=== PATIENT | male | born 2000 | race Caucasian/White ===

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

== ENCOUNTER 2021-06-25 14:53 | Emergency (ER) | payer SELFPAY ==
[~2021-06-25] VITALS: Ht 172.7 cm; Wt 70.0 kg
[2021-06-25 16:20] LABS: ALBUMIN 4.5 g/dL (3.2-5.0); ALKALINE PHOSPHATASE 77 u/l (38-126); ANION GAP 16 (6-22 (CALC)); BILIRUBIN, TOTAL 0.5 mg/dL (0.0-1.4); BUN 15 mg/dL (9-20); BUN/CREATININE RATIO 14 (12-20 (CALC)); CARBON DIOXIDE 25 mmol/l (22-30); CHLORIDE 96 mmol/l (95-108); CREATININE 1.1 mg/dL (0.7-1.3); GFR > 60 ML/MIN (>=60 (CALC)); GFR FOR AFR.AMER. > 60 ML/MIN (>=60 (CALC)); HEMATOCRIT 42.2 % (39.0-50.0); HEMOGLOBIN 14.7 g/dl (14.0-18.0); IMMATURE GRANULOCYTES 0.4 % (0.0-5.0); MEAN CELL VOLUME 80.1 fL CALC (80.0-100.0); MEAN CORPUSCULAR HGB 27.9 pG CALC (26.0-32.0); MEAN CORPUSCULAR HGB CONC 34.8 g/dL CAL (32.0-36.0); NEUT# 1.91 thou/uL (1.82-7.42); POTASSIUM 3.6 mmol/l (3.5-5.1); RED BLOOD COUNT 5.27 mill/uL (4.70-6.10); RED CELL DISTRI WIDTH 11.6 % (11.5-15.5); SGOT/AST 41 u/l (17-59); TOTAL PROTEIN 7.3 g/dL (6.3-8.2)
[2021-06-25 16:29] LABS: SODIUM 133 mmol/l (137-146)
[2021-06-25 16:52] LABS: URINE BLOOD DIPSTICK NEGATIVE (NEGATIVE); URINE COLOR YELLOW; URINE GLUCOSE - DIPSTICK NEGATIVE (NEGATIVE); URINE KETONE 40 mg/dL (NEGATIVE); URINE LEUK ESTERASE NEGATIVE (NEGATIVE); URINE PROTEIN - DIPSTICK TRACE mg/dL (NEG-TRACE); URINE SPECIFIC GRAVITY >=1.030; URINE UROBILINOGEN - DIPSTICK 0.2 E.U./dL (0.2)
[2021-06-25 17:02] LABS: URINE BILIRUBIN - DIPSTICK SMALL (NEGATIVE); URINE NITRITE - DIPSTICK NEGATIVE (Negative)
[2021-06-25] MEDS ORDERED: TORADOL PO (17:12)
[2021-06-25] MEDS ORDERED: ZOFRAN4 MG/TAB PO (17:12)
[2021-06-25 17:18] VITALS: BP 125/76
== END 2021-06-25 17:26 | disposition home or self-care (01) | DRG 179 ==
LOC: ED 14:53
PROVIDERS: Emergency Medicine
DX: U07.1 COVID-19 (principal)

== ENCOUNTER 2022-06-17 10:15 | Emergency (ER) | payer SELFPAY ==
[~2022-06-17] VITALS: Ht 170.2 cm; Wt 81.8 kg
[~2022-06-17 10:15] MED LIST changes: +ZOFRAN4 MG/TAB PO
[2022-06-17 10:25] VITALS: BP 125/69
[2022-06-17 10:31] VITALS: BP 112/68
[2022-06-17 10:35] LABS: HEMATOCRIT 38.7 % (39.0-50.0); HEMOGLOBIN 13.4 g/dl (14.0-18.0); IMMATURE GRANULOCYTES 0.4 % (0.0-5.0); MEAN CELL VOLUME 81.6 fL CALC (80.0-100.0); MEAN CORPUSCULAR HGB 28.3 pG CALC (26.0-32.0); MEAN CORPUSCULAR HGB CONC 34.6 g/dL CAL (32.0-36.0); NEUT# 5.11 thou/uL (1.82-7.42); RED BLOOD COUNT 4.74 mill/uL (4.70-6.10); RED CELL DISTRI WIDTH 12.2 % (11.5-15.5)
[2022-06-17 10:54] LABS: ALBUMIN 4.6 g/dL (3.2-5.0); ALKALINE PHOSPHATASE 108 u/l (38-126); BILIRUBIN, TOTAL 0.3 mg/dL (0.0-1.4); BUN 16 mg/dL (9-20); BUN/CREATININE RATIO 15 (12-20 (CALC)); CARBON DIOXIDE 23 mmol/l (22-30); CREATININE 1.1 mg/dL (0.7-1.3); GFR FOR AFR.AMER. > 60 ML/MIN (>=60 (CALC)); GFR OTHER RACES > 60 ML/MIN (>=60 (CALC)); LIPASE 100 u/l (23-300); POTASSIUM 4.3 mmol/l (3.5-5.1); SGOT/AST 35 u/l (17-59); TOTAL PROTEIN 7.4 g/dL (6.3-8.2)
[2022-06-17 10:56] LABS: ANION GAP 14 (6-22 (CALC)); CHLORIDE 109 mmol/l (95-108); SODIUM 142 mmol/l (137-146)
[2022-06-17 11:05] VITALS: BP 104/58
[2022-06-17 12:37] LABS: URINE BILIRUBIN - DIPSTICK NEGATIVE (NEGATIVE); URINE BLOOD DIPSTICK NEGATIVE (NEGATIVE); URINE COLOR YELLOW; URINE GLUCOSE - DIPSTICK NEGATIVE (NEGATIVE); URINE KETONE NEGATIVE (NEGATIVE); URINE LEUK ESTERASE NEGATIVE (NEGATIVE); URINE PH 7.5 (4.5-8.0); URINE PROTEIN - DIPSTICK NEGATIVE (NEG-TRACE); URINE UROBILINOGEN - DIPSTICK 0.2 E.U./dL (0.2)
[2022-06-17 12:41] LABS: URINE NITRITE - DIPSTICK NEGATIVE (Negative)
[2022-06-17 13:10] VITALS: BP 95/61
[2022-06-17 13:11] VITALS: BP 103/65
[2022-06-17 13:12] VITALS: BP 103/65
== END 2022-06-17 13:20 | disposition home or self-care (01) | DRG 392 ==
LOC: ED 10:15
PROVIDERS: Family Medicine
DX: R10.31 Right lower quadrant pain (principal)